=== PATIENT | female | born 1980 | race Caucasian/White ===

== ENCOUNTER 2024-10-25 11:06 | Emergency (ER) | payer OTHER, SELFPAY ==
--- NOTE | ~2024-10-25 | CT_ITS ---
EXAMINATION: CT CERVICAL SPINE WITHOUT CONTRAST CLINICAL INFORMATION: Status post fall. COMPARISON: None available. TECHNIQUE: Contiguous axial images through the cervical spine using 3 mm collimation with bone and soft tissue algorithm. Sagittal and coronal reformatted images acquired. This CT examination was performed using dose optimization techniques as appropriate, variously including the following: *Automated exposure control *Adjustment of mA and/or kV according to patient size (this includes techniques or standardized protocols for targeted exams where dose is matched to indication/reason for exam; i.e. extremities or head) *Use of iterative reconstruction technique DLP: 373.55 mGy centimeter. FINDINGS: Craniocervical junction is intact. C1 is intact. C2 is intact. C3 is intact. C4 is intact. C5 is intact. C6 is intact. C7 is intact. No prevertebral compartment hematoma. Marginal osteophyte formation and endplate sclerosis subchondral cyst formation and decreased disc height at C6-7 and to a lesser extent C3-4. No gross malalignment between the vertebral bodies or the facet joints. Punctate calcifications in the palatine tonsils. CT/CT cervical spine wo IV con IMPRESSION: Multilevel cervical spondylosis more conspicuous at C3-4 and C6-7 levels without acute fracture or trauma-related listhesis. Fleischner guidelines were followed. Electronically signed by: Zoltan Hernandez MD 10/25/2024 01:28 PM [facility]
--- NOTE | ~2024-10-25 | CT_ITS ---
EXAMINATION: CT HEAD WITHOUT CONTRAST CLINICAL INFORMATION: Fall COMPARISON: None available. TECHNIQUE: Contiguous axial imaging was performed from the skull base to vertex without intravenous administration of contrast. This CT examination was performed using dose optimization techniques as appropriate, variously including the following: *Automated exposure control *Adjustment of mA and/or kV according to patient size (this includes techniques or standardized protocols for targeted exams where dose is matched to indication/reason for exam; i.e. extremities or head) *Use of iterative reconstruction technique DLP: 798.88 mGy-cm FINDINGS: Cortical disruption is seen in the nasal bones. Metallic plate in the right frontal sinus bess/frontal bone. No acute cortical disruption in the bony calvarium. Skull base is intact. No acute intracranial hemorrhage, mass effect, midline shift, hydrocephalus or herniation. Shore-white matter differentiation is normal. Posterior cranial fossa contents demonstrated no acute intracranial hemorrhage or mass effect. Sellar/suprasellar region demonstrated no gross masses. Craniocervical junction is intact with normal alignment. No air-fluid levels in the paranasal sinuses. Retention cysts versus polyp, left maxillary sinus. Tympanic cavities and mastoid cells are aerated. CT/CT head/brain wo IV con IMPRESSION: Nasal bone fractures. No acute fracture, bony calvarium. No acute intracranial hemorrhage. Intact metallic plate in the right frontal bone/outer table right frontal sinus. Electronically signed by: Zoltan Hernandez MD 10/25/2024 01:22 PM [facility]
[2024-10-25 11:24] VITALS: BP 129/85; BP 135/90; PULSE 76; PULSE 81; RESP 18; TEMP 36.9; O2SAT 100; O2SAT 99; BMI 28.2
--- NOTE | 2024-10-25 12:34 | ED.GENADULT ---
HPI - General Adult General Chief complaint: Head Injury Stated complaint: Fall with lac positive head strike/C-collar Time Seen by Provider: 10/25/24 11:15 History of Present Illness ED Provider: Dr. Tavarez HPI narrative: 44 y/o F patient; without significant PMH; presents from appointment today with slop and fall on ice immediately prior to arrival. The patient states she lost her footing and fell back striking her head on the ground. She possibly passed out for a moment or two. At this time she denies: headache, nausea/vomiting, vision changes, numbness/weakness/tingling in extremities. Related Data Allergies Allergy/AdvReac Type Severity Reaction Status Date / Time No Known Allergies Allergy Verified 10/25/24 11:36 Review of Systems Review of Systems: Yes all other systems are reviewed and are negative Neurologic: Denies Sensory deficit (Neuro) [facility] Past Medical History Attestation statement: The following information was validated with the patient. Source: unable to obtain Social History Social History Smoked in Last 30 Days: No Use of substances other than those prescribed or required for medical reasons: No Advance Directives: No Advance Directives Information Provided: Yes Physical Exam ED Vital Signs: Vital Signs - 24 hr 10/25/24 11:24 Temperature 98.5 F Pulse Rate 76 Respiratory Rate 18 Blood Pressure 129/85 Pulse Oximetry 99 Oxygen Delivery Method Room Air BMI result Body Mass Index 28.2 Patient is afebrile and hemodynamically stable Const General: cooperative and no acute distress Orientation/consciousness: patient oriented x3 HENMT Other: Small abrasion to occipital scalp without skin gaping or active bleeding Eyes Pupils: Equal, round and reactive pupils present EOM: EOMs intact bilaterally Neck Other: c-collar in place Chest Chest palpation & inspection: normal inspection of the chest and normal palpation of entire chest wall Resp Effort & Inspection: normal respiratory effort, able to speak in complete sentences, no cough and no respiratory distress Auscultation: clear to auscultation bilaterally Cardio Rate: regular rate Rhythm: regular rhythm Peripheral pulses: Peripheral pulses 2+ throughout GI Inspection: Yes normal to inspection, No Abdominal wall edema and No distended Palpation (GI): Soft to palpation, not firm, nontender, no guarding and not rigid Auscultation: normal bowel sounds Back/Spine/Pelvis Back: No back tenderness Neuro General: patient oriented x3 Cranial nerves: Yes Equal, round and reactive pupils present Motor exam (neuro): 5/5 motor strength present throughout Sensory Exam: No Sensory deficit (Neuro) Course Course Course Narrative: Patient is afebrile and hemodynamically stable. Ordered for CT Head/Neck. CT Head notable only for nasal bone fx. Patient did not have any facial trauma though, so possibly these are old. CT Cervical Spine without acute traumatic abnormalities. Tetanus updated. Patient is able to walk without difficulty. Plan: Discharge to home with PCP follow up Return precautions given Medical Decision Making Radiology Impression Discussion of test interpretation with radiology: I have reviewed the radiologist's reading. Radiologist Impression: Report Number: [id number]: Total DLP = 0.00 mGy-cm EXAMINATION: CT HEAD WITHOUT CONTRAST CLINICAL INFORMATION: Fall COMPARISON: None available. TECHNIQUE: Contiguous axial imaging was performed from the skull base to vertex without intravenous administration of contrast. This CT examination was performed using dose optimization techniques as appropriate, variously including the following: *Automated exposure control *Adjustment of mA and/or kV according to patient size (this includes techniques or standardized protocols for targeted exams where dose is matched to indication/reason for exam; i.e. extremities or head) *Use of iterative reconstruction technique DLP: 798.88 mGy-cm FINDINGS: Cortical disruption is seen in the nasal bones. Metallic plate in the right frontal sinus bess/frontal bone. No acute cortical disruption in the bony calvarium. Skull base is intact. No acute intracranial hemorrhage, mass effect, midline shift, hydrocephalus or herniation. Shore-white matter differentiation is normal. Posterior cranial fossa contents demonstrated no acute intracranial hemorrhage or mass effect. Sellar/suprasellar region demonstrated no gross masses. Craniocervical junction is intact with normal alignment. No air-fluid levels in the paranasal sinuses. Retention cysts versus polyp, left maxillary sinus. Tympanic cavities and mastoid cells are aerated. CT/CT head/brain wo IV con IMPRESSION: Nasal bone fractures. No acute fracture, bony calvarium. No acute intracranial hemorrhage. Intact metallic plate in the right frontal bone/outer table right frontal sinus. Electronically signed by: Zoltan Hernandez MD 10/25/2024 01:22 PM [facility] EXAMINATION: CT CERVICAL SPINE WITHOUT CONTRAST CLINICAL INFORMATION: Status post fall. COMPARISON: None available. TECHNIQUE: Contiguous axial images through the cervical spine using 3 mm collimation with bone and soft tissue algorithm. Sagittal and coronal reformatted images acquired. This CT examination was performed using dose optimization techniques as appropriate, variously including the following: *Automated exposure control *Adjustment of mA and/or kV according to patient size (this includes techniques or standardized protocols for targeted exams where dose is matched to indication/reason for exam; i.e. extremities or head) *Use of iterative reconstruction technique DLP: 373.55 mGy centimeter. FINDINGS: Craniocervical junction is intact. C1 is intact. C2 is intact. C3 is intact. C4 is intact. C5 is intact. C6 is intact. C7 is intact. No prevertebral compartment hematoma. Marginal osteophyte formation and endplate sclerosis subchondral cyst formation and decreased disc height at C6-7 and to a lesser extent C3-4. No gross malalignment between the vertebral bodies or the facet joints. Punctate calcifications in the palatine tonsils. CT/CT cervical spine wo IV con IMPRESSION: Multilevel cervical spondylosis more conspicuous at C3-4 and C6-7 levels without acute fracture or trauma-related listhesis. Fleischner guidelines were followed. Electronically signed by: Zoltan Hernandez MD 10/25/2024 01:28 PM [facility] Discharge Plan Discharge Clinical Impression: Closed head injury Patient Disposition: Home, Self-Care Instructions: Head Injury (ED) Additional Instructions: Your tetanus was updated today 10/25/2024. Please follow up with your PCP within the next 1 - 2 days for re-evaluation. Print Language: Pashto
--- OUTSIDE RECORDS SUMMARY | 2024-10-25 13:09 | XMS_ITS | Clinical Summary ---
Author Organization [facility] lin Address [address] [place] [address] Care Team Providers Care Thread Spinner Name Role Phone Pcp, No Primary Care Provider [phone] Allergies No known active allergies Medications benztropine (COGENTIN) 0.5 MG tablet 1 TABLET BY MOUTH DAILY 1 Active dextroamphetam ine-amphetamin e 20 mg tab TAKE 1/2 1 TABLET BY MOUTH DAILY 1 Active estradiol valerate (DELESTROGEN) 20 mg/mL injection INJECT 0.5ML (10MG) WEEKLY BY INTRAMUSCULAR ROUTE 1 Active gabapentin (NEURONTIN) 300 MG capsule TAKE 1 CAPSULE BY MOUTH TWICE A DAY 1 Active progesterone (PROMETRIUM) 100 MG capsule TAKE 1 CAPSULE BY MOUTH AT BEDTIME 1 Active sertraline (ZOLOFT) 100 MG tablet TAKE 1 TABLET BY MOUTH EVERY DAY 1 Active spironolactone (ALDACTONE) 100 MG tablet TAKE 2 TABLETS TWICE A DAY BY ORAL ROUTE. 1 Active zaleplon (SONATA) 5 MG capsule TAKE 1 CAPSULE BY MOUTH EVERY EVENING 1 Active zolpidem (AMBIEN) 10 mg tablet TAKE 1 TABLET BY MOUTH ONCE A DAY AT BEDTIME 1 Active lorazepam (ATIVAN) 0.5 MG tablet 1 TABLET BY MOUTH DAILY 1 Active lidocaine-pril ocaine 2.5-2.5 % cream APPLY 1 APPLICATION BY TOPICAL ROUTE NEEDED. 1 Active albuterol 90 mcg/actuation inhaler 1 Active celecoxib (CeleBREX) 200 MG capsule TAKE 1 CAPSULE BY MOUTH DIRECTED BRING TO SUR[facility]ERY [facility]ENTER AND TAKE WHEN INSTRUCTED BY NURSE 2 Active cephALEXin (KEFLEX) 500 MG capsule 1 CAPSULE BY MOUTH THREE TIMES A DAY 2 Active guanFACINE (TENEX) 1 MG tablet 2 Active omeprazole (PriLOSEC) 20 MG capsule Take 1 capsule (20 mg total) by mouth Active oxyCODONE (ROXICODONE) 5 MG immediate release tablet TAKE 1 TABLET BY MOUTH EVERY 4 HOURS FOR PAIN OK TO DISPENSE FEWER IF PATIENT DESIRES 2 Active rOPINIRole (REQUIP) 0.5 MG tablet TAKE 1 TABLET BY MOUTH EVERYDAY AT BEDTIME 2 Active lamoTRIgine (LaMICtal) 100 MG tablet 4 Active lisdexamfetami ne (VYVANSE) 10 mg cap TAKE 1 CAPSULE BY MOUTH EVERY MORNING 4 Active pantoprazole (PROTONIX) 40 MG tablet TAKE 1 TABLET BY MOUTH EVERY DAY 4 Active QUEtiapine (SEROquel) 25 MG tablet TAKE 1 TABLET (25 MG TOTAL) BY MOUTH NIGHTLY AT BEDTIME NEEDED. NEEDED FOR SLEEP 4 Active Immunizations Name Administration Dates Next Due Flucelvax Trivalent PFS IM; Without Preservative (18+ mos) 05/11/2021 Fluzone Quadrivalent Single Dose Vial 06/14/2022 Fluzone Trivalent Prefilled Syringe (18+ months) 07/01/2023 Amitree Comnelida Covid-19 SDV (12+ yrs) 03/01/20 Amitree-[employer] bivalent - 12+ yrs ([place]ore Cap_ Social History Tobacco Use Types Packs/Day Years Used Date Smoking Tobacco: Never Smokeless Tobacco: Never Tobacco Cessation:Counseling Given: Not Answered Comments No Sex and Gender Information Value Date Recorded Sex Assigned at Not on file Legal Sex Female 4:45 PM EDT Gender Identity Not on file Sexual Orientation Not on file Last Filed Vital Signs Vital Sign Reading Time Taken Comments Blood Pressure 110/74 03/01/2024 3:43 PM EDT Pulse 84 03/01/2024 3:43 PM EDT Temperature 36.4 ??C (97.6 ??F) 03/01/2024 3:43 PM ED T Respiratory Rate 18 03/01/2024 3:43 PM EDT Oxygen Saturation 99% 03/01/2024 3:43 PM EDT Inhaled Oxygen Concentration - - Weight 79.4 kg (175 lb) 08/18/2022 5:16 PM EST Height 170.2 cm (5' 7 ) 08/18/2022 5:16 PM EST Body Mass Index 27.41 08/18/2022 5:16 PM EST Plan of Treatment Health Maintenance Due Date Last Done Comments Colorectal Cancer: COLONOSCO PY Screening every 10 yrs (or Modifier) 1979 Depression: Screening Annual ly using PHQ-2/9 in Adults 18 yrs or above (or HM Modifier)([facility]) 1997 Hepatitis C Virus Infection in Adolescents and Adults: Screening (or Modifier) ([facility]) 1997 SDOH Screening Reminder: Annually for all adults ([facility]) 1997 DTaP/Tdap/Td Vaccines ([facility]) (1 - Tdap) 1998 Lipid Screening: Once for Women aged 20 to 45 yrs ([facility]) 1999 Cervical Cancer Screenin-65 yrs of age (or Modifier) 02/12/2000 Cervical Cancer Screening: P ap every 3 yrs pts age 21-65 02/12/2000 Cervical Cancer: Pap Screeni ng with Modifier timing ([facility]) 02/12/2000 Cervical Cancer: hrHPV alone or with cotesting Pap for Pts 30-65yrs screening every 5yrs ([facility]) 02/12/2000 Colorectal Cancer Screening 45 -75 Yrs (or HM Modifier) 02/12/2024 Colorectal Cancer: FLEXIBLE SIGMOIDOSCOPY Screening every 5 yrs 02/12/2024 Colorectal Cancer: Fecal Immunochemical Test (FIT) Annually [facility] 02/12/2024 Colorectal Cancer: High-sensitivity gFOBT Screening Annually [facility] 02/12/2024 Colorectal Cancer: Stool Cologuard Screening every 3 yrs 02/12/2024 Colorectal Cancer:CT Colonography Screening every 5 yrs 02/12/2024 Flu Vaccination: Yearly for ages 18mos through 64 years (or Modifier)([facility]) 04/07/2024 07/01/2023, 05/11/2021 COVID-19 Vaccine Screening: Initial Series and Booster Status ([facility]) (2023- season) 2024 03/01/2024, 06/14/2022 Zoster/Shingles Vaccine Seri es Screening: Adults aged 18+ yrs (or HM Modifiers)([facility]) (1 of 2) 2029 Pneumococcal Vaccination Screening: Pts 0-19 & 19-64 yrs of age ([facility]) Aged Out No longer eligible b ased on patient's age to complete this topic Medical Devices Not on file Insurance [facility] Care Teams Thread Spinner Relationship Specialty Start Date End Date Pcp, No PCP - General Family Medicine 07/01/23
--- OUTSIDE RECORDS SUMMARY | 2024-10-25 13:09 | XMS_ITS | Clinical Summary ---
Author Organization [facility] Address [address] [place] [address] Care Team Providers Care Anthropologist Physical Name Role Phone Kamini Garcia MD Primary Care Provider [phone] Allergies No known active allergies Medications Sertraline HCl (ZOLOFT) 50 MG tablet Take 100 mg by mouth Active Spironolactone (ALDACTONE) 100 MG tablet Take 100 mg by mouth 1 (one) time each day 2 Active Omeprazole (PriLOSEC) [address] capsule Take 20 mg by mouth Active LORazepam (ATIVAN) 0.5 MG tablet Take 1 tablet by mouth 1 (one) time each day 1 Active guanFACINE HCl (TENEX) 1 MG tablet Take 1 mg by mouth 1 (one) time each day 2 Active Gabapentin (NEURONTIN) 300 MG capsule Take 300 mg by mouth 2 (two) times a day 2 Active Estradiol Valerate (DELESTROGEN) 20 MG/ML injection INJECT 0.5ML (10MG) WEEKLY BY INTRAMUSCULAR ROUTE 1 Active Benztropine Mesylate (COGENTIN) 0.5 MG tablet Take 1 tablet by mouth 1 (one) time each day 1 Active Amphetamine-De xtroamphetamin e (ADDERALL) 20 MG tablet Take by mouth 1 (one) time each day 2 Active Social History Tobacco Use Types Packs/Day Years Used Date Smoking Tobacco: Never Assessed Comments Unknown Sex and Gender Information Value Date Recorded Sex Assigned at Not on file Legal Sex Female 11:15 AM EDT Gender Identity Not on file Sexual Orientation Not on file Last Filed Vital Signs Vital Sign Reading Time Taken Comments Blood Pressure 100/64 03/05/2022 11:22 AM EDT Pulse 88 03/05/2022 11:22 AM EDT Temperature 36.2 ??C (97.2 ??F) 03/05/2022 11:22 AM E DT Respiratory Rate - - Oxygen Saturation - - Inhaled Oxygen Concentration - - Weight - - Height - - Body Mass Index - - Plan of Treatment Health Maintenance Due Date Last Done Comments Hepatitis C Screening 1979 Pap Smear 1995 DTaP/Tdap/Td (1 - Tdap) 1997 Hep B (1 of 3 - 19+ 3-dose series) 1998 Mammogram/Breast Imaging 2019 COVID-19 Vaccine (2023-2 5 season) 2024 01/04/2021, 12/14/2020 Influenza (#1) 2024 05/11/2021, 10/28/2019, 10/04/2016 Zoster (Shingrix) (1 of 2) 2029 HPV Vaccine Aged Out No longer eligi ble based on patient's age to complete this topic Hep A Aged Out No longer eligi ble based on patient's age to complete this topic Hib Aged Out No longer eligi ble based on patient's age to complete this topic Meningococcal ACWY Aged Out No longer eligible based on patient's age to complete this topic Pneumococcal Aged Out No longer eligi ble based on patient's age to complete this topic Insurance FFS Care Teams Anthropologist Physical Relationship Specialty Start Date End Date Kamini Garcia MD [facility] [address] [facility] [address] [place] [id number] PCP - General Family Medicine 03/05/22
[2024-10-25 14:10] VITALS: BP 129/85; PULSE 76; RESP 18; TEMP 36.9; O2SAT 99
[2024-10-25] MEDS: Diphth,Pertus(ACell),Tet Adult 0.5 ML SYRINGE IM (14:10)
== END 2024-10-25 14:11 | disposition home or self-care (01) ==
PROVIDERS: Emergency Provider Emergency Medicine
DX: S09.8XXA Other specified injuries of head, initial encounter (principal); S00.01XA Abrasion of scalp, initial encounter; W00.0XXA Fall on same level due to ice and snow, initial encounter; Y93.01 Activity, walking, marching and hiking; Y92.410 Unspecified street and highway as the place of occurrence of the external cause; Y99.9 Unspecified external cause status
CPT/HCPCS: 70450; 72125; 90471; 90715; 99283; 99284

== ENCOUNTER → 2024-10-25 11:25 | Outpatient (BNV) | payer OTHER, SELFPAY | PROVIDERS: Emergency Provider Emergency Medicine; Visit Provider Radiology Diagnostic Radiology | DX: M47.892 Other spondylosis, cervical region (principal); S09.90XA Unspecified injury of head, initial encounter; W00.0XXA Fall on same level due to ice and snow, initial encounter | CPT/HCPCS: 70450; 72125 ==